=== PATIENT | male | born 1980 | race Two or more races ===

== ENCOUNTER 2017-01-31 12:50 | Emergency (ER) | payer OTHER ==
[~2017-01-31] VITALS: Ht 177.8 cm; Wt 90.7 kg
[~2017-01-31 12:50] MED LIST: Acyclovir PO
--- NOTE | 2017-01-31 13:00 | NUR ---
PT CALLED TO TRIAGE, PT NOT IN WAITING ROOM
--- NOTE | 2017-01-31 13:19 | NUR ---
PT TO ER BED ROOM 07. BRIGHT RED BLOOD IN STOOL X 2 WEEKS . RECTAL PAIN. A/A/O. NAD. VS WNL. CHANGED TO GOWN. CONNECTED TO MONITOR. SIDE RAISL UP. SEEN AND EVALUATED BY ED PROVIDER.
--- NOTE | 2017-01-31 13:43 | NUR ---
PATIENT DOES NOT WANT TYLENOL AT THIS TIME. ED PROVIDER MADE AWARE.
[2017-01-31 13:54] LABS: BASOPHILS # (AUTO) 0.2 /CMM (0.0-0.2); BASOPHILS % (AUTO) 2.8 % (0.0-2.0); EOSINOPHILS # (AUTO) 0.1 /CMM (0.0-0.7); EOSINOPHILS % (AUTO) 1.7 % (0.0-6.0); HEMATOCRIT 47 % (39-51); HEMOGLOBIN 15.7 g/dL (13.5-17.5); LYMPHOCYTES # (AUTO) 2.3 /CMM (0.8-4.8); LYMPHOCYTES % (AUTO) 27.9 % (20.0-44.0); MEAN CORPUSCULAR HEMOGLOBIN 30 PG (26.0-33.0); MEAN CORPUSCULAR HGB CONC 34 g/dl (31.0-36.0); MEAN CORPUSCULAR VOLUME 89 fL (80-96); MONOCYTES # (AUTO) 0.5 /CMM (0.1-1.30); MONOCYTES % (AUTO) 5.7 % (2.0-12.0); NEUTROPHILS # (AUTO) 5.3 /CMM (1.8-8.9); NEUTROPHILS % (AUTO) 61.9 % (43.0-81.0); PLATELET COUNT (AUTO) 224 /CMM (150-450); RDW COEFFICIENT OF VARIATION 12.4 (11.5-15.0); RED BLOOD CELL COUNT(AUTO) 5.26 MIL/uL (4.5-6.0); WHITE BLOOD COUNT (AUTO) 8.4 K/uL (4.3-11.0)
[2017-01-31 13:54] LABS: APPEARANCE,URINE Clear (CLEAR); BILIRUBIN,URINE Negative (NEGATIVE); BLOOD, URINE Trace-intact Ery/uL (NEGATIVE); COLOR,URINE Yellow (YELLOW); KETONES,URINE Negative (NEGATIVE); LEUKOCYTE ESTERASE ,URINE Negative (NEGATIVE); NITRITE, URINE Negative (NEGATIVE); PH,URINE 5.5 (5.0-8.0); PROTEIN,URINE Trace mg/dl (NEGATIVE); UGLUCOSE Negative (NEGATIVE); UROBILINOGEN,URINE 0.2 EU/dL (0.2)
[2017-01-31] MEDS ORDERED: ACETAMINOPHEN ES 500 MG TABLET PO ONE (14:00)
[2017-01-31 14:01] LABS: CALCIUM, SERUM 9.2 mg/dL (8.5-10.1); CREATININE 1.1 mg/dL (0.6-1.3); POTASSIUM 4.6 mmol/L (3.5-5.1)
[2017-01-31 14:07] LABS: ALBUMIN 3.8 g/dL (3.4-5.0); BILIRUBIN,DIRECT 0.1 mg/dL (0.0-0.2); BILIRUBIN,TOTAL 0.3 mg/dL (0.2-1.0); TOTAL PROTEIN, SERUM 7.5 g/dL (6.4-8.2)
[2017-01-31 14:13] LABS: ADD URINE CULTURE NO; BACTERIA,URINE Rare /HPF (None Seen); RBC,URINE 0-2 /HPF (0-2); SQUAMOUS EPITHELIAL CELL,UR Rare /HPF (None Seen); WBC,URINE 0-2 /HPF (0-3)
--- NOTE | 2017-01-31 14:46 | NUR ---
Patient discharged to home in stable condition. Written and verbal after care instructions given. Patient verbalizes understanding of instruction. NAD. VS WNL. ambulatory with a steady gait.
[2017-01-31 14:48] VITALS: BP 133/65
== END 2017-01-31 14:49 | disposition home or self-care (01) ==
LOC: ER 12:56
DX: K64.9 Unspecified hemorrhoids (principal); F17.200 Nicotine dependence, unspecified, uncomplicated
CPT/HCPCS: 36415; 80048-TC; 80076-TC; 81000-TC; 83690-TC; 85025-TC; A4606; Z7610

== ENCOUNTER 2020-01-22 19:18 | Emergency (ER) | payer SELFPAY ==
[~2020-01-22] VITALS: Ht 177.8 cm; Wt 88.9 kg
[2020-01-22 19:30] VITALS: BP 139/88
--- NOTE | 2020-01-22 19:33 | NUR ---
PT CAME TO THE ED C/O L ARM NUMBNESS, HEAVINESS, AND LOSS OF SENSATION. PT STATES " I FEEL A SENSE OF DOOM". PT ENDORSES BACK AND NECK PAIN WELL. PT AAOX4, RR EVEN AND UNLABORED ON RA W NAD NOTED. PT CONNECTED TO THE MONITOR AND POX
--- NOTE | 2020-01-22 19:53 | NUR ---
BLOOD COLLECTED AND SENT TO LAB
[2020-01-22 20:06] LABS: BASOPHILS # (AUTO) 0.1 /CMM (0.0-0.2); BASOPHILS % (AUTO) 1.2 % (0.0-2.0); EOSINOPHILS % (AUTO) 3.7 % (0.0-6.0); HEMATOCRIT 43 % (39-51); HEMOGLOBIN 14.7 g/dL (13.5-17.5); LYMPHOCYTES # (AUTO) 2.7 /CMM (0.8-4.8); LYMPHOCYTES % (AUTO) 31.9 % (20.0-44.0); MEAN CORPUSCULAR HGB CONC 35 g/dl (31.0-36.0); MEAN CORPUSCULAR VOLUME 90 fL (80-96); MONOCYTES # (AUTO) 0.5 /CMM (0.1-1.30); NEUTROPHILS # (AUTO) 4.8 /CMM (1.8-8.9); NEUTROPHILS % (AUTO) 57.2 % (43.0-81.0); PLATELET COUNT (AUTO) 227 /CMM (150-450); RED BLOOD CELL COUNT(AUTO) 4.76 MIL/uL (4.5-6.0); WHITE BLOOD COUNT (AUTO) 8.5 K/uL (4.3-11.0)
[2020-01-22 20:23] LABS: CALCIUM, SERUM 9.1 mg/dL (8.5-10.1); CARBON DIOXIDE 29 mmol/L (21-32); CHLORIDE 103 mmol/L (98-107); CREATININE 1.3 mg/dL (0.6-1.3); GLUCOSE 98 mg/dL (74-106); POTASSIUM 4.1 mmol/L (3.5-5.1); SODIUM SERUM 141 mmol/L (136-145); UREA NITROGEN, BLOOD 16 mg/dL (7-18)
--- NOTE | 2020-01-22 21:01 | NUR ---
Patient discharged to home in stable condition. Written and verbal after care instructions given. Patient verbalizes understanding of instruction.
== END 2020-01-22 21:02 | disposition home or self-care (01) ==
LOC: ER 19:21
DX: R20.2 Paresthesia of skin (principal); F17.210 Nicotine dependence, cigarettes, uncomplicated; Z79.899 Other long term (current) drug therapy
CPT/HCPCS: 36415; 71045-TC; 72050-TC; 80048-TC; 84484-TC; 85025-TC

== ENCOUNTER 2023-06-08 18:40 | Emergency (ER) | payer MEDICAID, OTHER ==
[~2023-06-08] VITALS: Ht 180.3 cm; Wt 88.5 kg
[2023-06-08 20:10] VITALS: BP 159/105; TEMP 98.3; O2SAT 99
== END 2023-06-08 20:10 | disposition home or self-care (01) ==
LOC: ER 18:45
DX: M70.861 Other soft tissue disorders related to use, overuse and pressure, right lower leg (principal); Y93.89 Activity, other specified
CPT/HCPCS: 73564-TC